=== PATIENT | male | born 1960 | race Caucasian/White ===

== ENCOUNTER 2019-11-14 05:16 | Day surgery (SDC) | payer OTHER ==
[2019-11-07 14:16] VITALS: BMI 25.1
[2019-11-14 11:05] VITALS: TEMP 96
[2019-11-14 12:23] VITALS: BP 126/74; PULSE 78
--- NOTE | 2019-11-15 17:52 | PATH ---
Surgical Pathology Report Patient Name: BARBIE JOE [facility]. Rec. #: [id number] /Age/Gender: 1960 (Age: 58) / M Account: [id number] Location: [facility]-ENDOSCOPY Taken: 11/14/2019 Received: 11/14/2019 Reported: 11/15/2019 Physicians: Edinson Longoria M.D. Specimen(s) Received ASCENDING COLON POLYP Clinical History Colon screening Postoperative diagnosis: Polyp, diverticulosis, hemorrhoids Final Diagnosis ASCENDING COLON, POLYP, POLYPECTOMY: TUBULAR ADENOMA. Electronically Signed Keshia Ayala M.D. Gross Description Received in formalin, labeled "ascending colon polyp" is a angulo, irregular portion of soft tissue measuring 0.4 cm. in greatest dimension. The specimen is submitted in toto in one cassette. MLSZ/11/14/2019 sanml/11/14/2019
== END 2019-11-14 12:05 | disposition home or self-care (01) ==
LOC: JASU-ENDO 05:16
PROVIDERS: ATTEND Internal Medicine Gastroenterology
PROC: 0DBK8ZX Excision of Ascending Colon, Via Natural or Artificial Opening Endoscopic, Diagnostic (ICD-10-PCS; principal; 2019-11-14 09:30)
DX: Z12.11 Encounter for screening for malignant neoplasm of colon (principal); D12.2 Benign neoplasm of ascending colon; K57.30 Diverticulosis of large intestine without perforation or abscess without bleeding; K64.8 Other hemorrhoids
CPT/HCPCS: 88305-TC